=== PATIENT | female | born 1950 | race Caucasian/White ===

== ENCOUNTER 2017-08-29 08:57 | Day surgery (SDC) | payer BC ==
[~2017-08-29 08:57] MED LIST: BIOT1TAB; CHOL400T32 PO; CYAN50003 PO; HYDR-565 PO; LACT1CAP65 PO; MULT-1085 PO; UBID10CA4; VITC500T PO
[2017-08-29] MEDS ORDERED: SULF-18 (09:56)
[2017-08-29] MEDS ORDERED: EZET10TA14 PO (09:57)
[2017-08-29] MEDS ORDERED: NALT1TAB PO (09:58)
[2017-08-29] MEDS ORDERED: ESTR42.53 VG (09:58)
[2017-08-29] MEDS ORDERED: GABA600T2 PO (09:59)
[2017-08-29] MEDS ORDERED: LIDOcaine 2% 5ml jelly ONE (10:07)
[2017-08-29 11:19] LABS: ALANINE AMINOTRANSFERASE 46 U/L (12-78); ALBUMIN/GLOBULIN RATIO 1.1 (1.1-1.5); ALKALINE PHOSPHATASE 95 IU/L (46-116); ANION GAP 7 (8-16); ASPARTATE AMINO TRANSFERASE 35 U/L (10-37); BILIRUBIN,TOTAL 0.4 MG/DL (0.1-1.0); BLOOD UREA NITROGEN 13 MG/DL (7-18); BUN/CREATININE RATIO 16.3 (6.6-38.0); CALCIUM 9.4 MG/DL (8.5-10.1); CHLORIDE 105 MMOL/L (99-107); GLUCOSE 103 MG/DL (70-104); POTASSIUM 4.4 MMOL/L (3.5-5.1); SODIUM 141 MMOL/L (135-145); TOTAL CARBON DIOXIDE 29.4 MMOL/L (24-32); TOTAL PROTEIN 7.8 G/DL (6.4-8.2); eGFR 72 ML/MIN
== END 2017-08-29 11:12 | disposition home or self-care (01) ==
LOC: WOUND CARE 08:57
PROVIDERS: ATTEND Surgery
DX: L97.321 Non-pressure chronic ulcer of left ankle limited to breakdown of skin (principal); K21.9 Gastro-esophageal reflux disease without esophagitis
CPT/HCPCS: 11042; 36415; 80053; 87070; 87075; 87076; 87077; 87102; 87185; 87186; A6021; A6206; A6222; A6446

== ENCOUNTER 2017-09-04 10:29 | Day surgery (SDC) | payer BC ==
[~2017-09-04 10:29] MED LIST changes: +ESTR42.53 VG; +EZET10TA14 PO; +GABA600T2 PO; +NALT1TAB PO; +SULF-18
[2017-09-04] MEDS ORDERED: LIDOcaine 2% 5ml jelly ONE (11:44)
== END 2017-09-04 12:08 | disposition home or self-care (01) ==
LOC: WOUND CARE 10:29
PROVIDERS: ATTEND Surgery
DX: I70.243 Atherosclerosis of native arteries of left leg with ulceration of ankle (principal); L97.321 Non-pressure chronic ulcer of left ankle limited to breakdown of skin; K21.9 Gastro-esophageal reflux disease without esophagitis; Z90.710 Acquired absence of both cervix and uterus; Z87.891 Personal history of nicotine dependence; Z72.89 Other problems related to lifestyle
CPT/HCPCS: 97597; A6021; A6206; A6209; A6446

== ENCOUNTER 2017-09-13 08:00 | Day surgery (SDC) | payer BC ==
[2017-09-13] MEDS ORDERED: iohexol 350 MG/ML 50ML vial IV ONE (08:37)
[2017-09-13] MEDS ORDERED: iohexol 350MG/ML 100ml bottle IV ONE (08:37)
[2017-09-13] MEDS ORDERED: LIDOcaine 2% 5ml jelly ONE (09:57)
[2017-09-13] MEDS ORDERED: RIFA300C4 (13:54)
[2017-09-13] MEDS ORDERED: SULF-14 PO (14:00)
== END 2017-09-13 10:50 | disposition home or self-care (01) ==
LOC: 64 CT 08:00
PROVIDERS: ATTEND Surgery
DX: I70.203 Unspecified atherosclerosis of native arteries of extremities, bilateral legs (principal); L97.328 Non-pressure chronic ulcer of left ankle with other specified severity; K57.10 Diverticulosis of small intestine without perforation or abscess without bleeding; K43.9 Ventral hernia without obstruction or gangrene; I70.0 Atherosclerosis of aorta; G12.9 Spinal muscular atrophy, unspecified; Z95.1 Presence of aortocoronary bypass graft; Z90.710 Acquired absence of both cervix and uterus; Z98.890 Other specified postprocedural states; Z79.899 Other long term (current) drug therapy; Z72.89 Other problems related to lifestyle
CPT/HCPCS: 11042; 75635; A6021; A6206; A6446; J7030; Q9967

== ENCOUNTER 2017-09-18 10:27 | Day surgery (SDC) | payer MEDICARE ==
[~2017-09-18 10:27] MED LIST changes: +RIFA300C4; +SULF-14 PO
[2017-09-18] MEDS ORDERED: LIDOcaine 2% 5ml jelly ONE (11:24)
[2017-09-18] MEDS ORDERED: nystatin/triamcinolone cream 15gm TP ONE (11:48)
== END 2017-09-18 12:12 | disposition home or self-care (01) ==
LOC: WOUND CARE 10:27
PROVIDERS: ATTEND Surgery
DX: I70.243 Atherosclerosis of native arteries of left leg with ulceration of ankle (principal); L97.321 Non-pressure chronic ulcer of left ankle limited to breakdown of skin; K21.9 Gastro-esophageal reflux disease without esophagitis; Z90.710 Acquired absence of both cervix and uterus; Z87.891 Personal history of nicotine dependence; Z72.89 Other problems related to lifestyle; Z95.1 Presence of aortocoronary bypass graft
CPT/HCPCS: 97597; A6021; A6206; A6209

== ENCOUNTER 2017-09-26 11:29 | Day surgery (SDC) | payer MEDICARE ==
[2017-09-26] MEDS ORDERED: LIDOcaine 2% 5ml jelly ONE ×2 (12:06→12:49)
== END 2017-09-26 13:45 | disposition home or self-care (01) ==
LOC: WOUND CARE 11:29
PROVIDERS: ATTEND Surgery
DX: I70.243 Atherosclerosis of native arteries of left leg with ulceration of ankle (principal); L97.321 Non-pressure chronic ulcer of left ankle limited to breakdown of skin; K21.9 Gastro-esophageal reflux disease without esophagitis; Z90.710 Acquired absence of both cervix and uterus; Z87.891 Personal history of nicotine dependence; Z72.89 Other problems related to lifestyle; Z95.1 Presence of aortocoronary bypass graft
CPT/HCPCS: 15271; A6209; A6222; Q4131; A6250

== ENCOUNTER 2017-10-01 09:30 | Outpatient (CLI) | payer MEDICARE ==
[~2017-10-01 09:30] MED LIST changes: -RIFA300C4; -SULF-18
[2017-10-01] MEDS ORDERED: LIDOcaine 2% 5ml jelly ONE (10:25)
== END 2017-10-01 11:13 | disposition home or self-care (01) ==
LOC: WOUND CARE 09:30 → EDSTATUS 09:30 → WOUND CARE 11:13
PROVIDERS: ATTEND Surgery
DX: I70.243 Atherosclerosis of native arteries of left leg with ulceration of ankle (principal); L97.321 Non-pressure chronic ulcer of left ankle limited to breakdown of skin; K21.9 Gastro-esophageal reflux disease without esophagitis; Z90.710 Acquired absence of both cervix and uterus; Z87.891 Personal history of nicotine dependence; Z72.89 Other problems related to lifestyle; Z95.1 Presence of aortocoronary bypass graft
CPT/HCPCS: 82948; 99215; A6206

== ENCOUNTER 2017-10-08 09:22 | Outpatient (CLI) | payer MEDICARE ==
[~2017-10-08 09:22] MED LIST changes: -SULF-14 PO
[2017-10-08] MEDS ORDERED: LIDOcaine 2% 5ml jelly ONE (10:00)
== END 2017-10-08 11:04 | disposition home or self-care (01) ==
LOC: WOUND CARE 09:22 → EDSTATUS 09:30 → WOUND CARE 11:04
PROVIDERS: ATTEND Surgery
DX: I70.243 Atherosclerosis of native arteries of left leg with ulceration of ankle (principal); L97.321 Non-pressure chronic ulcer of left ankle limited to breakdown of skin; K21.9 Gastro-esophageal reflux disease without esophagitis; Z90.710 Acquired absence of both cervix and uterus; Z87.891 Personal history of nicotine dependence; Z72.89 Other problems related to lifestyle; Z95.1 Presence of aortocoronary bypass graft
CPT/HCPCS: 99215

== ENCOUNTER 2017-10-14 11:30 | Day surgery (SDC) | payer MEDICARE ==
[2017-10-14] MEDS ORDERED: LIDOcaine 2% 5ml jelly ONE (12:18)
== END 2017-10-14 12:45 | disposition home or self-care (01) ==
LOC: WOUND CARE 11:30
PROVIDERS: ATTEND Surgery
DX: I70.243 Atherosclerosis of native arteries of left leg with ulceration of ankle (principal); L97.321 Non-pressure chronic ulcer of left ankle limited to breakdown of skin; K21.9 Gastro-esophageal reflux disease without esophagitis; Z90.710 Acquired absence of both cervix and uterus; Z87.891 Personal history of nicotine dependence; Z72.89 Other problems related to lifestyle; Z95.1 Presence of aortocoronary bypass graft
CPT/HCPCS: 15271; A6209; A6222; Q4131; A6250

== ENCOUNTER 2017-10-21 11:34 | Day surgery (SDC) | payer MEDICARE ==
[2017-10-21] MEDS ORDERED: LIDOcaine 2% 5ml jelly ONE (12:15)
== END 2017-10-21 12:41 | disposition home or self-care (01) ==
LOC: WOUND CARE 11:34
PROVIDERS: ATTEND Surgery
DX: I70.243 Atherosclerosis of native arteries of left leg with ulceration of ankle (principal); L97.321 Non-pressure chronic ulcer of left ankle limited to breakdown of skin; K21.9 Gastro-esophageal reflux disease without esophagitis; Z90.710 Acquired absence of both cervix and uterus; Z87.891 Personal history of nicotine dependence; Z72.89 Other problems related to lifestyle; Z95.1 Presence of aortocoronary bypass graft
CPT/HCPCS: 97597; A6021; A6209; A6222

== ENCOUNTER 2017-10-25 10:22 | Day surgery (SDC) | payer MEDICARE | END 2017-10-25 11:25 | disposition home or self-care (01) | LOC: WOUND CARE 10:22 | PROVIDERS: ATTEND Surgery | DX: I70.243 Atherosclerosis of native arteries of left leg with ulceration of ankle (principal); L97.321 Non-pressure chronic ulcer of left ankle limited to breakdown of skin; K21.9 Gastro-esophageal reflux disease without esophagitis; Z90.710 Acquired absence of both cervix and uterus; Z87.891 Personal history of nicotine dependence; Z72.89 Other problems related to lifestyle; Z95.1 Presence of aortocoronary bypass graft | CPT/HCPCS: 15271; A6209; A6222; A6446; Q4131; A6250 ==

== ENCOUNTER 2017-10-31 10:43 | Outpatient (CLI) | payer MEDICARE | END 2017-10-31 11:22 | disposition home or self-care (01) | LOC: WOUND CARE 10:43 → EDSTATUS 11:00 → WOUND CARE 11:22 | PROVIDERS: ATTEND Surgery | DX: L97.321 Non-pressure chronic ulcer of left ankle limited to breakdown of skin (principal); K21.9 Gastro-esophageal reflux disease without esophagitis; Z90.710 Acquired absence of both cervix and uterus; Z87.891 Personal history of nicotine dependence; Z95.1 Presence of aortocoronary bypass graft | CPT/HCPCS: 99211; A6209 ==

== ENCOUNTER 2017-11-08 09:25 | Outpatient (CLI) | payer MEDICARE ==
[2017-11-08] MEDS ORDERED: LIDOcaine 2% 5ml jelly ONE (09:37)
== END 2017-11-08 10:10 | disposition home or self-care (01) ==
LOC: WOUND CARE 09:25
PROVIDERS: ATTEND Surgery
DX: L97.321 Non-pressure chronic ulcer of left ankle limited to breakdown of skin (principal); K21.9 Gastro-esophageal reflux disease without esophagitis; Z90.710 Acquired absence of both cervix and uterus; Z87.891 Personal history of nicotine dependence; Z95.1 Presence of aortocoronary bypass graft
CPT/HCPCS: 99214; A6021; A6206; A6212

== ENCOUNTER 2017-11-25 11:14 | Day surgery (SDC) | payer MEDICARE | END 2017-11-25 12:00 | disposition home or self-care (01) | LOC: WOUND CARE 11:14 | PROVIDERS: ATTEND Surgery | DX: L97.321 Non-pressure chronic ulcer of left ankle limited to breakdown of skin (principal); I70.243 Atherosclerosis of native arteries of left leg with ulceration of ankle; K21.9 Gastro-esophageal reflux disease without esophagitis; Z90.710 Acquired absence of both cervix and uterus; Z87.891 Personal history of nicotine dependence; Z95.1 Presence of aortocoronary bypass graft | CPT/HCPCS: 15271; A6209; A6222; Q4131; 15275; A6250 ==

== ENCOUNTER 2017-12-02 11:03 | Outpatient (CLI) | payer MEDICARE | END 2017-12-02 12:05 | disposition home or self-care (01) | LOC: WOUND CARE 11:03 | PROVIDERS: ATTEND Surgery | DX: I70.243 Atherosclerosis of native arteries of left leg with ulceration of ankle (principal); L97.321 Non-pressure chronic ulcer of left ankle limited to breakdown of skin; K21.9 Gastro-esophageal reflux disease without esophagitis; Z90.710 Acquired absence of both cervix and uterus; Z87.891 Personal history of nicotine dependence; Z95.1 Presence of aortocoronary bypass graft | CPT/HCPCS: 99215; A6209; A6222 ==

== ENCOUNTER 2017-12-09 11:21 | Outpatient (CLI) | payer MEDICARE ==
[2017-12-09] MEDS ORDERED: LIDOcaine 2% 5ml jelly ONE (11:46)
== END 2017-12-09 12:38 | disposition home or self-care (01) ==
LOC: WOUND CARE 11:21
PROVIDERS: ATTEND Surgery
DX: I70.243 Atherosclerosis of native arteries of left leg with ulceration of ankle (principal); L97.322 Non-pressure chronic ulcer of left ankle with fat layer exposed; K21.9 Gastro-esophageal reflux disease without esophagitis; Z90.710 Acquired absence of both cervix and uterus; Z87.891 Personal history of nicotine dependence; Z95.1 Presence of aortocoronary bypass graft
CPT/HCPCS: 99215; A6212; A6446

== ENCOUNTER 2017-12-19 11:24 | Outpatient (CLI) | payer MEDICARE ==
[2017-12-19] MEDS ORDERED: LIDOcaine 2% 5ml jelly ONE (11:47)
== END 2017-12-19 12:10 | disposition home or self-care (01) ==
LOC: WOUND CARE 11:24 → EDSTATUS 11:30 → WOUND CARE 12:10
PROVIDERS: ATTEND Surgery
DX: I70.243 Atherosclerosis of native arteries of left leg with ulceration of ankle (principal); L97.322 Non-pressure chronic ulcer of left ankle with fat layer exposed; K21.9 Gastro-esophageal reflux disease without esophagitis; Z90.710 Acquired absence of both cervix and uterus; Z87.891 Personal history of nicotine dependence; Z95.1 Presence of aortocoronary bypass graft
CPT/HCPCS: 99215

== ENCOUNTER 2018-01-02 11:33 | Day surgery (SDC) | payer MEDICARE ==
[2018-01-02] MEDS ORDERED: LIDOcaine 2% 5ml jelly ONE (12:33)
== END 2018-01-02 13:11 | disposition home or self-care (01) ==
LOC: WOUND CARE 11:33
PROVIDERS: ATTEND Surgery
DX: I70.243 Atherosclerosis of native arteries of left leg with ulceration of ankle (principal); L97.322 Non-pressure chronic ulcer of left ankle with fat layer exposed; K21.9 Gastro-esophageal reflux disease without esophagitis; Z90.710 Acquired absence of both cervix and uterus; Z87.891 Personal history of nicotine dependence; Z95.1 Presence of aortocoronary bypass graft
CPT/HCPCS: 15271; A6209; Q4131; A6250

== ENCOUNTER 2018-01-15 09:05 | Outpatient (CLI) | payer MEDICARE ==
[2018-01-15] MEDS ORDERED: LIDOcaine 2% 5ml jelly ONE (09:37)
== END 2018-01-15 10:45 | disposition home or self-care (01) ==
LOC: WOUND CARE 09:05
PROVIDERS: ATTEND Surgery
DX: I70.243 Atherosclerosis of native arteries of left leg with ulceration of ankle (principal); L97.322 Non-pressure chronic ulcer of left ankle with fat layer exposed; K21.9 Gastro-esophageal reflux disease without esophagitis; Z90.710 Acquired absence of both cervix and uterus; Z87.891 Personal history of nicotine dependence; Z95.1 Presence of aortocoronary bypass graft
CPT/HCPCS: 99215; A6021; A6212; A6222

== ENCOUNTER 2018-01-20 10:12 | Outpatient (CLI) | payer MEDICARE ==
[2018-01-20] MEDS ORDERED: mupirocin 2% ointment 22GM ONE (12:04)
== END 2018-01-20 12:13 | disposition home or self-care (01) ==
LOC: WOUND CARE 10:12 → EDSTATUS 10:30 → WOUND CARE 12:13
PROVIDERS: ATTEND Surgery
DX: I70.243 Atherosclerosis of native arteries of left leg with ulceration of ankle (principal); L97.322 Non-pressure chronic ulcer of left ankle with fat layer exposed; K21.9 Gastro-esophageal reflux disease without esophagitis; Z90.710 Acquired absence of both cervix and uterus; Z87.891 Personal history of nicotine dependence; Z95.1 Presence of aortocoronary bypass graft
CPT/HCPCS: 99215; A6212

== ENCOUNTER 2021-07-17 15:45 | Emergency (ER) | payer MEDICARE ==
[~2021-07-17] VITALS: Ht 167.6 cm; Wt 54.5 kg
[~2021-07-17 15:45] MED LIST changes: -EZET10TA14 PO; +EZET10TA6 PO; +GABA600T13 PO; -GABA600T2 PO; +HYDR-4353 PO; -HYDR-565 PO
[2021-07-17 16:45] LABS: BASOPHILS % (AUTO) 0.2 % (0-1); EOSINOPHILS # (AUTO) 0.1 X10'3 (0-0.9); EOSINOPHILS % (AUTO) 1.5 % (0-6); HEMATOCRIT 40.8 % (35.0-45.0); HEMOGLOBIN 14.3 g/dl (12.0-16.0); LYMPHOCYTES # (AUTO) 1.2 X10'3 (1.1-4.8); MEAN CORPUSCULAR HEMOGLOBIN 40.9 PG (27.0-31.0); MEAN CORPUSCULAR VOLUME 116.8 FL (78-98); MEAN PLATELET VOLUME 8.1 FL (7.4-10.4); MONOCYTES # (AUTO) 0.3 X10'3 (0-0.9); MONOCYTES % (AUTO) 7.5 % (2-12); NEUTROPHILS % (AUTO) 65.8 % (42-75); PLATELET COUNT 257 X10'3 (140-440); RED CELL DISTRIBUTION WIDTH 13.7 % (11.5-14.5); WHITE BLOOD COUNT 4.6 X10'3 (4.5-11.0)
[2021-07-17 16:58] LABS: PARTIAL THROMBOPLASTIN TIME 27 SECONDS (22-32)
[2021-07-17 17:00] LABS: ALANINE AMINOTRANSFERASE 30 U/L (12-78); ALBUMIN 4.3 G/DL (3.4-5.0); ALBUMIN/GLOBULIN RATIO 1.2 (1.1-1.5); ALKALINE PHOSPHATASE 74 IU/L (46-116); ANION GAP 8 (8-16); ASPARTATE AMINO TRANSFERASE 16 U/L (10-37); BILIRUBIN,TOTAL 0.4 MG/DL (0.1-1.0); BLOOD UREA NITROGEN 18 MG/DL (7-18); CALCIUM 9.7 MG/DL (8.5-10.1); CHLORIDE 105 MMOL/L (99-107); CREATININE 0.62 MG/DL (0.40-0.90); GLUCOSE 94 MG/DL (70-104); MAGNESIUM 2.2 MG/DL (1.5-2.4); POTASSIUM 3.8 MMOL/L (3.5-5.1); SODIUM 144 MMOL/L (135-145); TOTAL CARBON DIOXIDE 31.3 MMOL/L (24-32); TOTAL PROTEIN 7.8 G/DL (6.4-8.2); eGFR > 90 ML/MIN
[2021-07-17 17:24] LABS: PLATELET ESTIMATE NORMAL; TOTAL CELLS COUNTED 100
[2021-07-17 17:25] LABS: HYPERSEGMENTED NEUTROPHILS FEW
[2021-07-17 17:26] LABS: TEAR DROP CELLS FEW
[2021-07-17 17:28] LABS: ELLIPTOCYTES 2+
[2021-07-17 17:32] LABS: CLARITY,URINE CLEAR (Clear); COLOR,URINE YELLOW (Yellow); GLUCOSE, URINE NEGATIVE (Neg); KETONES,URINE NEGATIVE (Neg); LEUKOCYTE ESTERASE ,URINE TRACE (Neg); NITRITES, URINE NEGATIVE (Neg); OCCULT BLOOD,URINE NEGATIVE (Neg); PROTEIN,URINE NEGATIVE (Neg); UROBILINOGEN,URINE 0.2 E.U/dL (0.2-1.0)
[2021-07-17 17:35] LABS: UA COLLECTION TYPE CLN CATCH MIDSTREAM
[2021-07-17 17:38] LABS: BACTERIA,URINE FEW /HPF (Neg); RBC,URINE 0-2 /HPF (0-2); SQUAMOUS EPITHELIAL CELL,UR FEW /LPF (FEW); WBC,URINE 0-4 /HPF (0-4)
[2021-07-17 19:30] LABS: ETHANOL < 0.010 GM/DL (0.0-0.010)
[2021-07-17 19:43] LABS: D-DIMER 0.63 MG/L FEU (0-0.50)
[2021-07-17 19:44] LABS: C-REACTIVE PROTEIN 0.06 MG/DL (0.0-0.5)
[2021-07-17 19:55] LABS: URINE AMPHETAMINE SCREEN NEGATIVE (Neg); URINE BARBITUATE SCREEN NEGATIVE (Neg); URINE BENZODIAZEPINES SCREEN NEGATIVE (Neg); URINE CANNABINOID SCREEN NEGATIVE (Neg); URINE COCAINE SCREEN NEGATIVE (Neg); URINE METHADONE SCREEN NEGATIVE (Neg); URINE OPIATE SCREEN NEGATIVE (Neg); URINE PHENCYCLIDINE SCREEN NEGATIVE (Neg)
[2021-07-17 20:32] VITALS: BP 119/82
== END 2021-07-17 21:39 | disposition home or self-care (01) ==
LOC: ER 15:46
DX: R53.1 Weakness (principal); I82.502 Chronic embolism and thrombosis of unspecified deep veins of left lower extremity; R06.02 Shortness of breath; R42 Dizziness and giddiness; Z87.410 Personal history of cervical dysplasia; Z87.891 Personal history of nicotine dependence; Z79.899 Other long term (current) drug therapy
CPT/HCPCS: 36415; 71045; 80053; 80305; 80320; 81001; 82607; 82746; 83735; 84145; 85007; 85025; 85379; 85610; 85730; 86140; 87088; 93005; 93971; 99285